=== PATIENT | male | born 1970 | race Caucasian/White ===

== ENCOUNTER 2016-07-22 18:04 | Emergency (ER) | payer SELFPAY ==
[2016-07-22 20:05] VITALS: BP 134/70; PULSE 87; BMI 22.7
--- NOTE | 2016-07-22 20:07 | DIRPT ---
CLINICAL DATA: Cough EXAM: CHEST 2 VIEW COMPARISON: 03/30/2010 FINDINGS: The heart size and mediastinal contours are within normal limits. Both lungs are clear. The visualized skeletal structures are unremarkable. IMPRESSION: No active cardiopulmonary disease. Electronically Signed By: Althea Powell M.D. On: 07/22/2016 20:04
[2016-07-22 20:13] LABS: AUTOMATED BASOPHIL 0.8 % (0-2); AUTOMATED LYMPH 14.8 % (17-44); AUTOMATED MONOCYTE 8.9 % (3-10); AUTOMATED NEUTROPHIL 74.5 % (45-76); MPV 9.2 fL (7.4-10.4)
[2016-07-22 20:21] LABS: BLOOD UREA NITROGEN 7 MG/DL (9-20); CALCIUM 9.2 MG/DL (8.4-10.2); CALCULATED OSMOLALITY 265 MOs/Kg (270-290); CHLORIDE 102 mEq/L (98-107); GLUCOSE 86 mg/dL (70-99); SODIUM LEVEL 139 mEq/L (137-146)
[2016-07-22] MEDS ORDERED: ALBUTEROL 6.7 GM MDI INH ONE (20:29)
[2016-07-22] MEDS ORDERED: ACETAMINOPHEN 325 MG/TAB TABLET PO ONE (20:29)
--- NOTE | 2016-07-22 20:31 | EDPRACDOC ---
- General Information Chief Complaint: Flu-Like Symptoms Stated Complaint: FLU LIKE SYMPTOMS Time Seen by Provider: 07/22/16 20:22 Information Source: Patient Home Medications: Home Medications Benzonatate [Tessalon] 100 mg PO TID #20 capsule 07/23/14 Guaifenesin [Robitussin] 200 mg PO Q6 PRN #200 ml 07/23/14 Pseudoephedrine HCl 60 mg PO Q6 PRN #20 tablet 07/23/14 Acetaminophen with Codeine [TYLENOL WITH CODEINE; [employer] with Codeine] 10 ml PO Q6H PRN #120 ml 07/22/16 Oseltamivir Phosphate [Tamiflu] 75 mg PO BID #10 capsule 07/22/16 Prednisone [Deltasone, Orasone] 20 mg PO DAILY #20 tab 07/22/16 Allergies/Adverse Reactions: Allergies Allergy/AdvReac Type Severity Reaction Status Date / Time Penicillins Allergy Anaphylaxis Verified 07/22/16 19:47 * - History of Present Illness Onset: 3 DAYS HPI: Pt c/o fever, congestion, cough, sob, body aches x 2-3 days. Denies cp, abd pain , n/v, changes in bowel or bladder, rash. Shortness of Breath: Mild Relevant History of: Reports: None Cough: Reports: Non-productive Rhinorrhea: Reports: Clear Fever Severity/Quality: Reports: greater than 100.5 F Ear Symptoms: Reports: None Associated Signs & Symptoms: Reports: Cough, Fever, Headache, Nasal Symptoms, Sore Throat Oral Intake: Normal Urinary Output: Normal ED Past Medical History - History Reviewed Yes Nurses notes reviewed and agree except as marked - Social Medical History Smoking Status: Heavy tobacco smoker (5 or more cigarettes/day or daily pipe/ cigar) ETOH: None Substance Abuse: None EDM Review of Systems - Review of Systems Constitutional: Chills, Fever Ears: No Symptoms Reported. negative: Pain, Hearing Loss, Drainage, Ear Pulling Throat: Pain Nose: Congestion Mouth: No Symptoms Reported. negative: Pain, Drooling Respiratory: Cough, Shortness of Breath Cardiovascular: No Symptoms Reported. negative: Chest Pain, Palpitations, Syncope, Edema, Orthopnea, PND, Skin Mottling, Cyanosis Gastrointestinal: No Symptoms Reported. negative: Pain, Constipation, Nausea, Vomiting, Diarrhea, Melena, Formula Intolerance Genitourinary: No Symptoms Reported. negative: Dysuria, Hematuria, Frequency, Discharge, Bleeding, Testicular Pain, Neurological: Headache Musculoskeletal: Other (bodyaches) Integumentary: No Symptoms Reported. negative: Itching, Rash, Bruising, Wound Allergic/Immunologic: No Symptoms Reported. negative: Hives, Itching Hematologic: No Symptoms Reported. negative: Lymphadenopathy, Easy Bruising, Easy Bleeding - Physical Exam Constitutional: Alert Oriented to: Time, Person, Place Last recorded Vital Signs: Last Vital Signs Temp 101.0 F H 07/22/16 20:05 Pulse 87 07/22/16 20:05 Resp 20 07/22/16 20:05 BP 134/70 07/22/16 20:05 Pulse Ox 96 07/22/16 20:05 Oxygen Pulse Oxygen Saturation 96 O2 Device Room Air Oxygen Flow Rate Fraction of Inspired Oxygen ( FIO2) - HEENT Head: Normal ( normocephalic) Eye Exam: Normal (PERRL, EOMI, Sclera white) Oropharynx: Red Tympanic Membrane: Normal ENT EAC: Normal TMJ: Normal Nose: Congestion Neck: Normal (FROM, trachea at midline) - Respiratory/Cardiovascular Respiratory: Normal - CTA (BBS clear to auscultation without adventitious sounds ) Cardiovascular: Normal (RRR without murmur, gallop or rub) - GI Auscultation: Normal (NABS) Palpation: Normal (Soft,No rebound or guarding, non distended) Tenderness: Non tender - Musculoskeletal Back: Normal (Non-Tender) Extremities: Normal (Normal tone, Pulses 2+ No cyanosis or edema, FROM) - Integumentary Skin: Normal, Warm, Dry Lymphatics: Normal (no adenopathy) - Neurologic Memory Impaired: Normal Motor Function: Normal (Normal tone, Pulses 2+ No cyanosis or edema, FROM) Mood Description: Normal Perception: Normal - Differential Diagnosis Bronchitis, Influenza A B, Pneumonia, URI, Viral - Results 07/22/16 19:50 07/22/16 19:50 WBC 3.8 xk/uL (3.8-10.8) 07/22/16 19:50 RBC 4.86 xM/uL (4.70-6.10) 07/22/16 19:50 Hgb 15.8 g/dL (14.0-18.0) 07/22/16 19:50 Hct 46.0 % (42-52) 07/22/16 19:50 MCV 95 fL (80-94) H 07/22/16 19:50 MCH 32.6 pg (27-32) H 07/22/16 19:50 MCHC 34.4 g/dl (33-36) 07/22/16 19:50 RDW 13.4 % (11.5-14.5) 07/22/16 19:50 Plt Count 135 xk/uL (130-400) 07/22/16 19:50 MPV 9.2 fL (7.4-10.4) 07/22/16 19:50 Neut % (Auto) 74.5 % (45-76) 07/22/16 19:50 Lymph % (Auto) 14.8 % (17-44) L 07/22/16 19:50 [place] % (Auto) 8.9 % (3-10) 07/22/16 19:50 Eos % (Auto) 1.0 % (0-5) 07/22/16 19:50 Baso % (Auto) 0.8 % (0-2) 07/22/16 19:50 Absolute Neuts (auto) 2.81 xk/uL (1.7-8.2) 07/22/16 19:50 Absolute Lymphs (auto) 0.53 xk/uL (0.65-4.75) L 07/22/16 19:50 Sodium 139 mEq/L (137-146) 07/22/16 19:50 Potassium 4.3 mEq/L (3.5-5.1) 07/22/16 19:50 Chloride 102 mEq/L (98-107) 07/22/16 19:50 Carbon Dioxide 27 mMOL/L (22-33) 07/22/16 19:50 Anion Gap 14 mEq/L (8-16) 07/22/16 19:50 BUN 7 MG/DL (9-20) L 07/22/16 19:50 Creatinine 1.10 MG/DL (0.66-1.25) 07/22/16 19:50 Estimated GFR (MDRD) > 60 mL/min (>=60) 07/22/16 19:50 Glucose 86 mg/dL (70-99) 07/22/16 19:50 Calculated Osmolality 265 MOs/Kg (270-290) L 07/22/16 19:50 Calcium 9.2 MG/DL (8.4-10.2) 07/22/16 19:50 Total Bilirubin 0.4 MG/DL (0.2-1.3) 07/22/16 19:50 AST 39 IU/L (17-59) 07/22/16 19:50 ALT 52 IU/L (21-72) 07/22/16 19:50 Alkaline Phosphatase 84 IU/L (38-126) 07/22/16 19:50 Total Protein 7.0 G/DL (6.3-8.2) 07/22/16 19:50 Albumin 4.3 G/DL (3.5-5.0) 07/22/16 19:50 Microbiology 07/22/16 19:50 Influenza Type A Antigen Screen - Final N/P - Naso/Pharyngeal NEGATIVE Please note: A NEGATIVE result does not exclude an influenza virus infection. It is a presumptive result and, if required, confirmation should be done using either a virus culture or an FDA-cleared influenza A&B molecular assay. ("NORMAL" value = "NEGATIVE".) Influenza Type B Antigen Screen - Final POSITIVE Please note: POSITIVE results do not rule out co-infection with other pathogens or identify any specific subtypes of Influenza A or B. ("NORMAL" value = "NEGATIVE".) Lab Results 07/22/16 07/22/16 19:50 19:50 WBC 3.8 RBC 4.86 Hgb 15.8 Hct 46.0 MCV 95 H MCH 32.6 H MCHC 34.4 RDW 13.4 Plt Count 135 MPV 9.2 Neut % (Auto) 74.5 Lymph % (Auto) 14.8 L [place] % (Auto) 8.9 Eos % (Auto) 1.0 Baso % (Auto) 0.8 Absolute Neuts (auto) 2.81 Absolute Lymphs (auto) 0.53 L Sodium 139 Potassium 4.3 Chloride 102 Carbon Dioxide 27 Anion Gap 14 BUN 7 L Creatinine 1.10 Estimated GFR (MDRD) > 60 Glucose 86 Calculated Osmolality 265 L Calcium 9.2 Total Bilirubin 0.4 AST 39 ALT 52 Alkaline Phosphatase 84 Total Protein 7.0 Albumin 4.3 - Diagnostic Imaging Chest Image interpreted by: Radiologist IMPRESSION: No active cardiopulmonary disease. Decision Time to Discharge: 20:32 - Departure Disposition: Home Condition: Good Final Diagnosis: Influenza Instructions: Influenza (ED) Education/Counseling Given To: Patient Education/Counseling Given Regarding: Diagnosis, Treatment, Follow Up Referrals: None,No Provider [Primary Care Provider] - One Week Andrew Espinoza II, MD [Staff Physician] - One Week Prescriptions: New Acetaminophen with Codeine [TYLENOL WITH CODEINE; [employer] with Codeine] 10 ml PO Q6H PRN #120 ml PRN Reason: Cough Oseltamivir Phosphate [Tamiflu] 75 mg PO BID #10 capsule Prednisone [Deltasone, Orasone] 20 mg PO DAILY #20 tab No Action Pseudoephedrine HCl 60 mg PO Q6 PRN #20 tablet PRN Reason: Congestion Guaifenesin [Robitussin] 200 mg PO Q6 PRN #200 ml PRN Reason: Cough Benzonatate [Tessalon] 100 mg PO TID #20 capsule Additional Instructions: Use Tylenol every 4 hours and Motrin every 6 hours as needed for fever
[2016-07-22 20:33] VITALS: TEMP 101.4
== END 2016-07-22 20:46 | disposition home or self-care (01) ==
LOC: ED 18:04 → EDMC 20:46
DX: J11.1 Influenza due to unidentified influenza virus with other respiratory manifestations (principal)
CPT/HCPCS: 36415; 71020; 80053; 85025; 87804; 94640; 99283; J3490